=== PATIENT | female | born 1935 | race Caucasian/White ===

== ENCOUNTER 2017-03-09 06:45 | Inpatient (IN) | payer OTHER ==
[~2017-03-09] VITALS: Ht 154.9 cm; Wt 45.1 kg
--- NOTE | 2017-03-09 10:51 | DIAGNOSTIC IMAGING REPORT ---
PROCEDURE: ABDOMEN/PELVIS WITH CONTRAST CLINICAL INDICATION: ABDOMINAL PAIN TECHNIQUE: 100 ml of Isovue 300 were injected intravenously and axial images were obtained of the abdomen and pelvis with sagittal and coronal reformations. COMPARISON: None. FINDINGS: ABDOMEN: Distended, fluid-filled stomach with an air-fluid level. Proximal bowel loops are dilated and fluid-filled, measuring up to 3.3 cm in diameter. There is mild mesenteric congestion adjacent pelvic small bowel loops and in the right lower quadrant of the abdomen. A trace amount of fluid is seen lateral in the right lower quadrant. There is a small bowel anastomoses in the right lower quadrant and a very distended small bowel loop with signs of stasis, probably just proximal to the transition point. Distally, ileal loops are completely decompressed. Mildly increased amount of solid stool is seen throughout the colon. There are surgical changes of cystectomy, ileal conduit, and right abdominal ureterostomy. There is a small fatty peristomal hernia. The hernia sac measures approximately 3.5 cm in diameter. There is fluid in the urostomy bag. Clear lung bases. Normal liver, gallbladder, adrenal glands, spleen, pancreas, and inferior vena cava. Mild prominence of the intrarenal collecting systems bilaterally. Multiple tiny scattered corticomedullary hypodensities through each kidney. PELVIS: A fairly long segment of sigmoid colon demonstrates complete decompression. Elsewhere there is solid stool in the distal colon and rectum. Urinary bladder surgically absent. There is 1.6 x 1.3 cm low density mass along the left pelvic sidewall adjacent to the external iliac vessels. (Series 3 image 56). The uterus is surgically absent. No free pelvic fluid. Tiny sclerotic focus in the anterior left ilium just above the acetabulum. Ankylosis of the L5-S1 vertebral bodies. Unilateral right pars defect at L4 resulting in grade 1 L4 and L5 anterolisthesis and moderate disc degeneration. IMPRESSION: 1. Findings suggestive of high-grade partial or complete small bowel obstruction with transition point near the prior small bowel anastomosis in the right lower quadrant. 2. Cystectomy and urinary diversion procedure with right abdominal urostomy. 3. 1.6 cm left pelvic sidewall low-density mass of uncertain etiology. 4. Tiny sclerotic focus in the left ilium, probably a benign bone island but no prior comparison studies are available. 5. Status post hysterectomy. 6. Discussed with Dr. Shaw in the emergency room. All CT scans at this facility use dose modulation, iterative reconstruction, and/or weight-based dosing when appropriate to reduce radiation dose to as low as reasonably achievable.
--- NOTE | 2017-03-09 10:58 | ED CLINICAL REPORT ---
Clinical Report - Physicians/Mid Levels [facility] [address] [place] [address] 03/09/2017 6:56 Patient: MELECIO LIVINGSTON Time Seen: 07:01; initial patient contact. Arrived- By ambulance. Historian- patient. HISTORY OF PRESENT ILLNESS Chief Complaint: ABDOMINAL PAIN. At its maximum, severity described as mild. When seen in the E.D., severity described as mild. Modifying factors. Not worsened by anything. Not relieved by anything. It is described as sharp. No radiation. It is described as located in the periumbilical area. The patient has had nausea and loss of appetite. No vomiting or diarrhea. Similar symptoms previously: None. Recent medical care: Not recently seen/assessed. REVIEW OF SYSTEMS No constipation, black stools, hematemesis, difficulty with urination or pain with urination. No urinary frequency, bloody stools, fever or chills. Last bowel movement: recently. All systems otherwise negative, except as recorded above. PAST HISTORY GERD Breast Ca Bladder Ca. Surgeries: Had hysterectomy. Medications: Benzonatate Oral (Capsule 100 mg) 2 capsules, daily. Zaleplon Oral (Capsule 5 mg) 1/2 tab. Omeprazole Oral (Tablet Delayed Release 20 mg) 1 tablet, daily. AmLODIPine Besylate Oral (Tablet 10 mg) 1 tablet, daily. Multivitamins Oral. AmLODIPine Besylate Oral. Levothyroxine Sodium Oral (Tablet 125 mcg) 1 tablet, daily. Citalopram Hydrobromide Oral (Tablet 20 mg) 1 tablet. Levothyroxine Sodium Oral. Citalopram Hydrobromide Oral. Lovastatin Oral (Tablet 40 mg) 1 tablet, daily. Lovastatin Oral. Potassium Chloride Oral 10 meq, daily. Allergies: No Known Drug Allergy. SOCIAL HISTORY Never smoker. No alcohol use or drug use. ADDITIONAL NOTES The nursing notes have been reviewed. PHYSICAL EXAM Vital Signs: 03/09/2017 06:55 BP: 135/54. HR: 69. RR: 18. O2 saturation: 99%. Temp: 98.2 F. Pain level now: 5/10. Have been reviewed. Hypotensive. Heart rate normal. Respiratory rate normal. Temperature normal. Oxygen saturation normal. Appearance: Alert. Oriented X3. No acute distress. Eyes: Pupils equal, round and reactive to light. Eyes normal inspection. ENT: Nose normal. Dry mucous membranes present. Neck: Normal inspection. Neck supple. CVS: Normal heart rate and rhythm. Heart sounds normal. Respiratory: No respiratory distress. Breath sounds normal. Abdomen: Soft. Mild tenderness in the periumbilical area. No guarding or rebound tenderness. Bowel sounds normal. No organomegaly. No mass. Back: Normal inspection. No CVA tenderness. Skin: Skin warm and dry. Normal skin color. No rash. Extremities: No lower extremity edema. No lower extremity edema. Neuro: Oriented X 3. No motor deficit. No sensory deficit. LABS, X-RAYS, AND EKG Abdominal CT: Normal aorta. Normal liver, spleen, pancreas, gallbladder and adrenals. No mass. No free fluid. No bony lesion. No diverticulitis. Patient has a small bowel obstruction with a transition point in the right lower quadrant. Study type: abdomen and pelvis. Abdominal CT performed with IV contrast. The study was independently viewed by me, interpreted by the radiologist and contemporaneously by me and discussed with the radiologist. Prior studies were not available for comparison. Laboratory Tests: UA-Culture if indicated: (TARAN: 03/09/2017 07:45) ( MsgRcvd 03/09/2017 08:35) Final results Test Result Flag Units (Reference) URINE COLOR YELLOW URINE APPEARANCE CLEAR URINE GLUCOSE NEGATIVE (NEGATIVE) URINE BILIRUBIN NEGATIVE (NEGATIVE) URINE KETONE NEGATIVE (NEGATIVE) URINE SPECIFIC GRAVITY 1.010 (1.010-1.030) URINE PH 7.0 (5.0-8.0) URINE PROTEIN NEGATIVE (NEGATIVE) URINE UROBILINOGEN 0.2 EU/dL (0.2-1.0) URINE NITRITE NEGATIVE (NEGATIVE) URINE BLOOD NEGATIVE (NEGATIVE) URINE LEUK ESTERASE NEGATIVE (NEGATIVE) URINE RBC 0-1 rbc/hpf (0-1) URINE WBC 0-1 wbc/hpf (0-1) URINE EPITHELIAL CELLS 0-1 EPI/hpf (0-5) URINE BACTERIA NONE SEEN (NONE SEEN) URINE COMMENT CULT NOT INDICATED URINE CULTURES ARE SET-UP BASED ON THE FOLLOWING CRITERIA:POSITIVE NITRITEPOSITIVE LEUKOCYTE ESTERASEGREATER THAN 10 WHITE BLOOD CELLSMODERATE (2+) OR GREATER BACTERIA CBC w Diff: (TARAN: 03/09/2017 07:30) ( NegRcvd 03/09/2017 07:44) Final results Test Result Flag Units (Reference) WHITE BLOOD COUNT 17.2 H K/uL (4.5-11.5) RED BLOOD COUNT 4.85 M/uL (4.00-5.20) HEMOGLOBIN 14.5 gm/dL (12.0-16.0) HEMATOCRIT 43.7 % (36.0-46.0) MEAN CELL VOLUME 90 fL (80-100) MEAN CORPUSCULAR HGB 30 pg (26-34) MEAN CORPUSCULAR HGB CONC 33 g/dL (31-37) RED CELL DISTRIBUTION WIDTH 13.7 % (11.6-14.8) PLATELET COUNT 406 H K/uL (150-400) NEUTROPHIL % 90.8 H % (50-75) LYMPH % 4.8 L % (25-40) MONO % 4.0 % (3-14) EOSINOPHIL % 0.1 % (0-4) BASOPHIL % 0.3 % (0-2) CMP: (TARAN: 03/09/2017 07:30) ( MsgRcvd 03/09/2017 07:53) Final results Test Result Flag Units (Reference) GLUCOSE 159 H mg/dL (70-110) BUN 15 mg/dL (7-18) CREATININE 1.1 mg/dL (0.6-1.3) Estimated GFR 50.54 mL/min Estimated GFR- >60 mL/min Note: Persistent reduction over 3 months in eGFR<60 mL/min/1.73 m2 defines CKD. Patients with eGFR values>=60 mL/min/1.73 m2 may also have CKD if evidence ofpersistent proteinuria. Additional information may be foundat [email or web address].org. SODIUM 140 mmol/L (136-145) POTASSIUM 3.5 mmol/L (3.5-5.1) CHLORIDE 99 mmol/L (98-107) CARBON DIOXIDE 31 mmol/L (21-32) CALCIUM 10.8 H mg/dL (8.5-10.1) TOTAL PROTEIN 7.9 g/dL (6.4-8.2) ALBUMIN 3.7 g/dL (3.3-5.0) BILIRUBIN, TOTAL 1.2 H mg/dL (0.0-1.0) ALKALINE PHOSPHATASE 69 U/L (46-116) AST (SGOT) 17 U/L (15-37) ALT (SGPT) 22 U/L (12-78) LIPASE 104 U/L (73-393) AMYLASE 33 U/L (25-115) . Pulse Oximetry: 03/09/2017 06:55 O2 saturation: 99%. (FIO2 - room air). Interpretation: normal. PROGRESS AND PROCEDURES Course of Care: I received the patient in signout from Dr. De La Rosa at 9:00. Patient was pending CT scan of abdomen and pelvis at this time. Laboratory studies were unremarkable other than a leukocytosis. Patient was found have a small bowel obstruction on her CT scan, for which an NG tube was placed. Patient was found to be feelingquite a bit more comfortable after her initial 2 mg of morphine, but did ultimately require another dose of morphine in the emergency department. Discussed case with hospitalist, (Desiree). Reviewed test results and need for additional work-up. Agreed upon treatment plan and decision to admit. Health care provider will see patient in ED. Discussed case with on-call health care provider, (Jamey/ surgery). Reviewed test results. Agreed upon treatment plan. Health care provider will see patient in ED. Patient, spouse and family counseled in person regarding the patient's serious condition, test results, diagnosis and need for admission. Concerns were addressed. Old medical records reviewed. Disposition: Admitted to Acute Care. Condition: stable and serious. CLINICAL IMPRESSION Small bowel obstruction associated with intestinal bands / adhesions (partial versus complete). (Electronically signed by Amita Shaw MD 03/09/2017 20:59)
--- NOTE | 2017-03-09 10:58 | ED ORDER SUMMARY ---
..... Patient: MELECIO LIVINGSTON OrderSheet [facility] VisitID: [id number] [place] [address] 81y, F Registration Date/Time: 03/09/2017 ORDER SHEET Weight: 47.6 kg (stated) Allergies: No Known Drug Allergy GENERAL ORDERS: CBC w Diff Urgent (07:03 03/09/2017 Reba Strickland) (Ack 7:11 Priya) (7:35 SStone R.N.) CMP Urgent (07:03 03/09/2017 Reba Strickland) (Ack 7:11 Priya) (7:35 SStone R.N.) UA-Culture if indicated Urgent (07:03/09/2017 Reba Strickland) (Ack 7:11 Priya) (7:35 SStone R.N.) Amylase Urgent (07:03/09/2017 Reba Strickland) (Ack 7:11 Priya) (7:35 SStone R.N.) Lipase Urgent (07:03 03/09/2017 Reba Strickland) (Ack 7:11 Priya) (7:35 SStone R.N.) CT Abd/Pel w Cont (No) (15/.1) Urgent (08:52 03/09/2017 Reba Strickland) (Ack 8:53 Priya) (9:21 SStone R.N.) NG Tube (10:30 03/09/2017 Cruzito REINOSO) (Ack 10:52 LWhalen R.N.) (11:16 SStone R.N.) MEDICATION ORDERS: IV FLUIDS: IV NS : initial bolus none -, then 1000 mL/hr for X1 (NOW) (07:02 03/09/2017 Reba Strickland) (Ack 7:08 Kenia R.N.) (7:35 SStone R.N.) Zofran IV 4 mg (NOW) (07:02 03/09/2017 Reba Strickland) (Ack 7:08 Kenia R.N.) (7:35 SStone R.N.) Morphine IV 2 mg (HIGH ALERT MEDICATION, NOW) (07:37 03/09/2017 SStone R.N. verbal order read back to Reba Strickland) (7:38 SStone R.N.) Morphine IV 2 mg (HIGH ALERT MEDICATION, NOW) (11:14 03/09/2017 SStone R.N. verbal order read back to Cruzito REINOSO) (11:16 SStone R.N.) IV NS : initial bolus none -, then 100 mL/hr for 24h (NOW) (11:15 03/09/2017 SStone R.N. verbal order read back to Cruzito REINOSO) (11:16 SStone R.N.) ORDER SHEET NOTES: [Electronically signed by Fabian Kelly R.N. (14:07 03/09/2017)] [Electronically signed by Amita Shaw MD (20:59 03/09/2017)] [Electronically locked/signed by Fabian Kelly R.N. (14:07 03/09/2017)]
--- NOTE | 2017-03-09 10:58 | ED ORDER SUMMARY ---
..... Patient: MELECIO LIVINGSTON OrderSheet [facility] VisitID: [id number] [place] [address] 81y, F Registration Date/Time: 03/09/2017 ORDER SHEET Weight: 47.6 kg (stated) Allergies: No Known Drug Allergy GENERAL ORDERS: CBC w Diff Urgent (07:03 03/09/2017 Reba Strickland) (Ack 7:11 Priya) (7:35 SStone R.N.) CMP Urgent (07:03 03/09/2017 Reba Strickland) (Ack 7:11 Priya) (7:35 SStone R.N.) UA-Culture if indicated Urgent (07:03/09/2017 Reba Strickland) (Ack 7:11 Priya) (7:35 SStone R.N.) Amylase Urgent (07:03/09/2017 Reba Strickland) (Ack 7:11 Priya) (7:35 SStone R.N.) Lipase Urgent (07:03 03/09/2017 Reba Strickland) (Ack 7:11 Priya) (7:35 SStone R.N.) CT Abd/Pel w Cont (No) (15/.1) Urgent (08:52 03/09/2017 Reba Strickland) (Ack 8:53 Priya) (9:21 SStone R.N.) NG Tube (10:30 03/09/2017 Cruzito REINOSO) (Ack 10:52 LWhalen R.N.) (11:16 SStone R.N.) MEDICATION ORDERS: IV FLUIDS: IV NS : initial bolus none -, then 1000 mL/hr for X1 (NOW) (07:02 03/09/2017 Reba Strickland) (Ack 7:08 Kenia R.N.) (7:35 SStone R.N.) Zofran IV 4 mg (NOW) (07:02 03/09/2017 Reba Strickland) (Ack 7:08 Kenia R.N.) (7:35 SStone R.N.) Morphine IV 2 mg (HIGH ALERT MEDICATION, NOW) (07:37 03/09/2017 SStone R.N. verbal order read back to Reba Strickland) (7:38 SStone R.N.) Morphine IV 2 mg (HIGH ALERT MEDICATION, NOW) (11:14 03/09/2017 SStone R.N. verbal order read back to Cruzito REINOSO) (11:16 SStone R.N.) IV NS : initial bolus none -, then 100 mL/hr for 24h (NOW) (11:15 03/09/2017 SStone R.N. verbal order read back to Cruzito REINOSO) (11:16 SStone R.N.) ORDER SHEET NOTES: [Electronically signed by Fabian Kelly R.N. (14:07 03/09/2017)] [Electronically signed by Amita Shaw MD (20:59 03/09/2017)] [Electronically locked/signed by Fabian Kelly R.N. (14:07 03/09/2017)]
--- NOTE | 2017-03-09 10:58 | ED NURSING NOTES ---
Clinical Report - Nurses [facility] [address] [place] [address] 03/09/2017 6:56 Patient: MELECIO LIVINGSTON TRIAGE Triage time 06:47 Mar 09 2017. Acuity: LEVEL 3. Chief Complaint: ABDOMINAL PAIN and NAUSEA. 07:05 03/09/17. SEPSIS SCREEN: Sepsis Screen. Negative (no infection suspected/documented). FREIDA COMA SCORE: [place] Coma Scale: 15- eyes open spontaneously (4); best verbal response- oriented x 4 (5); best motor response- obeys commands (6). --07:05 Mag Correa R.N. 06:55 03/09/17. BP: 135/54 (regular adult cuff) taken on the left arm, while sitting. HR: 69. RR: 18. O2 saturation: 99% on room air. Temp: 98.2 F (oral). Pain level now: 5/10. --07:05 Mag Correa R.N. Weight: 47.6 kg stated. Height/Length: 61 inches Per Patient. BMI: 19.8. --07:02 Mag Correa R.N. Medications Lovastatin Oral. Potassium Chloride Oral 10 meq, daily. --06:58 Mag Correa R.N. Citalopram Hydrobromide Oral. Lovastatin Oral (Tablet 40 mg) 1 tablet, daily. --06:58 Mag Correa R.N. Citalopram Hydrobromide Oral (Tablet 20 mg) 1 tablet. Levothyroxine Sodium Oral. --06:59 Mag Correa R.N. AmLODIPine Besylate Oral. Levothyroxine Sodium Oral (Tablet 125 mcg) 1 tablet, daily. --06:59 Mag Correa R.N. AmLODIPine Besylate Oral (Tablet 10 mg) 1 tablet, daily. Multivitamins Oral. --06:59 Mag Correa R.N. Omeprazole Oral (Tablet Delayed Release 20 mg) 1 tablet, daily. --07:00 Mag Correa R.N. Zaleplon Oral (Capsule 5 mg) 1/2 tab. --07:00 Mag Correa R.N. Benzonatate Oral (Capsule 100 mg) 2 capsules, daily. --07:02 Mag Correa R.N. Allergies No Known Drug Allergy. --06:57 Mag Correa R.N. History Historian: EMS and patient. Primary physician (Dr Jerome). This started last night. ( Patient was diagnosed with bronchitis last Monday and started a new medication Benzonate). The patient has had nausea and moderate, constant abdominal pain. The pain is described as located in the upper abdomen. Treatment [employer]: (Antacid, pepto). PAST MEDICAL HX: Gastroesophageal reflux disease. The patient has had a hysterectomy. SOCIAL HX: Never smoker. No alcohol use or drug use. No recent travel. No infectious disease exposure. No known contact with a sick individual. ABUSE ASSESSMENT: No report of abuse. --07:05 Mag Correa R.N. Interventions ID band on patient. To treatment room. --07:05 Mag Correa R.N. PHYSICAL ASSESSMENT 07:07 03/09/17. To room via stretcher. Patient gowned. GENERAL / NEURO / PSYCH: Alert. Oriented X 4. Appears in no acute distress. HEENT: Mucous membranes are abnormal. RESPIRATORY: Respirations not labored. Breath sounds within normal limits. CVS: Normal sinus rhythm noted. Capillary refill less than 2 seconds. GI / : The patient has had nausea. Abdominal tenderness. Guarding present in the epigastric area. Bowel sounds within normal limits. ( Urostomy in place). SKIN: Skin is warm and dry. Poor skin turgor. --07:07 Mag Correa R.N. NURSING PROGRESS NOTES 07:08 03/09/17. The plan of care for this patient has been created. Monitoring of patient in place. Patient gowned. Head of bed elevated. Reassurance given. Two patient identifiers checked. Call light placed in reach. Side rails up x 2. Bed placed in lowest position. Brakes of bed on. Patient ready for evaluation- chart flagged and ED physician notified. --07:08 Mag Correa R.N. Care transferred and report given (VIVIANA Castro). --07:23 Mag Correa R.N. 07:25 03/09/2017 Site #1 started via IV in the left forearm with an 22g angiocath; one attempt. Blood drawn: rainbow set. Labeled in the presence of the patient and sent to the lab. Saline lock flushed with 10 mL saline. --07:35 Mary Ann Delgadillo R.N. 07:30 03/09/2017 Zofran (Ondansetron HCl) IVP 4 mg given over 2 minute(s) via site #1. IV patency established. IV site checked: no pain, redness, or swelling. IV flushed thoroughly pre- and post-medication administration. --07:35 Mary Ann Delgadillo R.N. 07:35 03/09/2017 Started IV Fluids IV NS (Saline); bolus of 1000 mL wide open via site #1. IV patency established. IV site checked: no pain, redness, or swelling. IV flushed thoroughly pre- and post-medication administration. --07:35 Mary Ann Delgadillo R.N. 07:38 03/09/2017 Morphine IVP 2 mg given over 2 minute(s) via site #1. IV patency established. IV site checked: no pain, redness, or swelling. IV flushed thoroughly pre- and post-medication administration. --07:38 Mary Ann Delgadillo R.N. 07:45 03/09/17. BP: 129/51. HR: 70. RR: 16. O2 saturation: 100%. Pain level now: 810. --07:46 Mary Ann Delgadillo R.N. ( family at bedside. urine collected from urostomy and sent to lab. Pt reports starting to feel more comfortable after pain medication.). --07:46 Mary Ann Delgadillo R.N. 08:30 03/09/17. BP: 112/40. HR: 78. O2 saturation: 98%. Pain level now: 0/10. --08:32 Mary Ann Delgadillo R.N. ( pt. reports feeling much better post pain meds.). --08:32 Mary Ann Delgadillo R.N. 09:04 03/09/17. BP: 99/46. HR: 73. O2 saturation: 96%. --09:04 Mary Ann Delgadillo R.N. ( Out to imaging with tech). --09:15 Mary Ann Delgadillo R.N. ( back from ct). --09:29 Mary Ann Delgadillo R.N. ( resting quietly. family at bedside. awaiting CT results.). --10:01 Mary Ann Delgadillo R.N. 10:00 03/09/17. BP: 115/74. HR: 71. O2 saturation: 96%. Pain level now: 10/28. --10:01 Mary Ann Delgadillo R.N. 10:55 03/09/17. BP: 127/48. O2 saturation: 96%. --11:14 Mary Ann Delgadillo R.N. 11:16 03/09/2017 Morphine IVP 2 mg given over 2 minute(s) via site #1. IV patency established. IV site checked: no pain, redness, or swelling. IV flushed thoroughly pre- and post-medication administration. --11:16 Mary Ann Delgadillo R.N. 11:16 03/09/2017 Started bag #1 1000 mL IV Fluids IV NS (Saline); at 100 mL/hr over 10 hour(s) via site #1. IV patency established. IV site checked: no pain, redness, or swelling. IV flushed thoroughly pre- and post-medication administration. --11:16 Mary Ann Delgadillo R.N. 16 fr NG tube inserted in right nostril with no difficulty. Placement confirmed by auscultation and return of gastric contents. Return: brown fluid. Tube secured. Attached to low and intermittent suction. Patient tolerated procedure well. Call light placed in reach. Side rails up x 2. Bed placed in lowest position. --11:17 Mary Ann Delgadillo R.N. Overall patient status is improved. --11:32 Mary Ann Delgadillo R.N. ( assumed care of pt, pt in poc, NG to low/int suction, previous RN dumped 1000ml of gastric contents, pt pain free, multiple family members at bedside, pt and family aware she is to be an admit to hospital.). --11:38 Fabian Kelly R.N. ( Dr Concepcion at bedside). --11:39 Fabian Kelly R.N. Patient waiting for admit bed. ( EDT assisted pt in emptying her colostomy bag, waiting ok for pt to transport to inpatient floor). --12:17 Fabian Kelly R.N. ( Hospitalist at bedside). --12:29 Fabian Kelly R.N. ( portable xray at bedside). --12:46 Fabian Kelly R.N. Patient identifiers checked. Call light placed in reach. Side rails up x 2. Bed placed in lowest position. Brakes of bed on. --12:49 Fabian Kelly R.N. 12:48 03/09/17. BP: 121/58. HR: 72. RR: 15. O2 saturation: 99%. Pain level now: 09/27. --12:49 Fabian Kelly R.N. ( continue to wait for ok to send pt upstairs for inpatient bed). --13:22 Fabian Kelly R.N. Intake & Output Gastric output: 1200 mL. --11:32 Mary Ann Delgadillo R.N. DISPOSITION / DISCHARGE Condition at departure: improved. Admitted to Acute Care (). Transported via stretcher by [facility]. Report was given to a nurse via a phone call. Report included patient's care, treatment, medications, reviewed medication reconcilliation, and condition (including any recent changes or anticipated changes). All questions were answered. Report was acknowledged and care was transferred. (Judie MICHELLE). --13:29 Fabian Kelly R.N. 13:27 03/09/17. BP: 122/52. HR: 74. RR: 17. O2 saturation: 100%. Pain level now: 09/27. --13:29 Fabian Kelly R.N. Locked/Released at 03/09/2017 14:07 by Fabian Kelly R.N.
--- NOTE | 2017-03-09 12:22 | Consultation Report ---
History Chief Complaint Abdominal pain History of Present Illness 81-year-old female with a history of severe colicky epigastric abdominal pain which began approximately 48 hours ago. During the last 24 hours it worsened. Localized epigastric region. Nonradiating. Crampy, colicky in nature. Associated with nausea or vomiting. Patient denies any fever or chills. Patient states that her last bowel movement was the day prior to admission. Patient has not passed any flatus for at least 48 hours. Patient states that she has no prior history of this type abdominal pain. PAST MEDICAL/HISTORY: Patient is followed by Dr. Fu, [facility]. Status post cystectomy with ileal conduit for bladder cancer, performed 4 years ago. Status post right breast lumpectomy and axillary dissection for breast cancer. Status post tonsillectomy and adenoidectomy. Status post hysterectomy and bilateral salpingo-oophorectomy. History of hypertension. History of hypercholesterolemia. History of hypothyroidism Patient History 1. PARTIAL VERSUS COMPLETE SMALL BOWEL OBSTRUCTION 2. Abdominal pain Social History with 2 daughters alive and well. Patient does not smoke. Patient no longer drinks alcohol. She does not use recreational drugs. Retired dispatcher for [employer] FAMILY HISTORY: Mother age 97, complications of colon cancer. Father in his 60s, cancer, unknown etiology. A half sister in good health Medications and Allergies Medications See nurses listing Allergies Uncoded Allergies: none (03/09/17) Review of Systems Other Ab0. Menarche age 14. First full term 23. Last menstrual period" 61". Last Pap smear approximately 20 years ago. Last mammogram approximately one year ago. Last colonoscopy approximately 10 years ago. Next denies any history of hepatitis, jaundice, rheumatic fever, heart murmurs, requiring antibiotics, bleeding tendencies. Patient admits to having a blood transfusion in the past. Patient 12 point review of systems is negative Physical Exam Vital Signs / I&Os Afebrile, stable vital signs emergency room General Appearance Alert, Oriented X3, Cooperative, No acute distress HEENT Atraumatic, PERRLA, EOMI, Moist mucous membranes, NG tube in place Lungs Clear to auscultation Neck Supple, No JVD, No masses, No thyromegaly, No lymphadenopathy, 2+ carotid pulse wo bruit Cardiovascular Regular rate and rhythm Abdomen ileal conduit functioning. Abdomen nondistended. Nontympanitic. Positive bowel sounds. Slight tenderness to palpation suprapubic region. Theinfra umbilical midline incision without hernia Extremities No clubbing, No edema, Normal pulses Skin warm and dry Neurological Normal speech, No lateralizing signs Psych/Mental Status Mental status normal LAB Results Laboratory Tests 03/09 03/09 0730 0745 Chemistry Plasma Sodium (136 - 145 mmol/L) 140 Plasma Potassium (3.5 - 5.1 mmol/L) 3.5 Plasma Chloride (98 - 107 mmol/L) 99 CO2 (Enzymatic) (21 - 32 mmol/L) 31 BUN (7 - 18 mg/dL) 15 Creatinine (0.6 - 1.3 mg/dL) 1.1 Est GFR ( Amer) (mL/min) >60 Est GFR (Non-Af Amer) (mL/min) 50.54 Glucose (70 - 110 mg/dL) 159 Plasma Calcium (8.5 - 10.1 mg/dL) 10.8 Total Bilirubin (0.0 - 1.0 mg/dL) 1.2 AST (15 - 37 U/L) 17 ALT (12 - 78 U/L) 22 Alkaline Phosphatase (46 - 116 U/L) 69 Total Protein (6.4 - 8.2 g/dL) 7.9 Albumin (3.3 - 5.0 g/dL) 3.7 Amylase (25 - 115 U/L) 33 Lipase (73 - 393 U/L) 104 Hematology WBC (4.5 - 11.5 K/uL) 17.2 RBC (4.00 - 5.20 M/uL) 4.85 Hgb (12.0 - 16.0 gm/dL) 14.5 Hct (36.0 - 46.0 %) 43.7 MCV (80 - 100 fL) 90 MCH (26 - 34 pg) 30 RDW (11.6 - 14.8 %) 13.7 Neut % (Auto) (50 - 75 %) 90.8 Lymph % (Auto) (25 - 40 %) 4.8 [place] % (Auto) (3 - 14 %) 4.0 Eos % (Auto) (0 - 4 %) 0.1 Baso % (Auto) (0 - 2 %) 0.3 Plt Count, EDTA (150 - 400 K/uL) 406 PUBS MCHC (31 - 37 g/dL) 33 Urines Urine Color YELLOW Urine Appearance CLEAR Urine pH (5.0 - 8.0) 7.0 Ur Specific [place] (1.010 - 1.030) 1.010 Urine Protein (NEGATIVE) NEGATIVE Urine Ketones (NEGATIVE) NEGATIVE Urine Blood (NEGATIVE) NEGATIVE Urine Nitrite (NEGATIVE) NEGATIVE Urine Bilirubin (NEGATIVE) NEGATIVE Urine Urobilinogen (0.2 - 1.0 EU/dL) 0.2 Ur Leukocyte Esterase (NEGATIVE) NEGATIVE Urine RBC (0 - 1 rbc/hpf) 0-1 Urine WBC (0 - 1 wbc/hpf) 0-1 Ur Epithelial Cells (0 - 5 EPI/hpf) 0-1 Urine Bacteria (NONE SEEN) NONE SEEN Urine Glucose (NEGATIVE) NEGATIVE Urine Comment CULT NOT INDICATED Imaging CT of abdomen reviewed , consistent with partial versus complete small bowel obstruction with transition point right lower quadrant. Assessment and Plan Problem List 1. PARTIAL VERSUS COMPLETE SMALL BOWEL OBSTRUCTION Plan 81-year-old female with history that would go along with someone partial versus complete small bowel instruction. Recommend NG suction and perhaps advancing NG tube into duodenum. Repeat upright abdominal x-ray in a.m. once bowel was decompressed recommend Gastrografin small bowel follow-through via NG tube. Judicious use of intravenous analgesics , however, avoid morphine and Dilaudid. Judicious use of nonsteroidal anti-inflammatory medication. Stress important of ambulation.
--- NOTE | 2017-03-09 13:03 | DIAGNOSTIC IMAGING REPORT ---
PROCEDURE: XR ABDOMEN 1 VIEW INDICATION: NG tube placement TECHNIQUE: Single view supine abdomen. COMPARISON: CT 03/09/2017 FINDINGS: Nasogastric tube has been placed. The tip is in the mid stomach directed right lateral. Air within the proximal stomach (decompressed). Paucity of gas elsewhere in the abdomen and pelvis. Renal excretion of IV contrast, right greater than left and right mid abdominal urostomy visible. The surgical clips along each pelvic sidewall of prior cystectomy. Intact osseous structures. IMPRESSION: 1. NG tube tip in mid to distal stomach. 2. Paucity of gas elsewhere suggests decompression versus fluid-filled bowel loops compatible with obstruction. 3. Right abdominal urostomy.
--- NOTE | 2017-03-09 13:26 | Progress Note ---
Subjective General Admission History and Physical Examination Status: In patient. Patient Name: Blanquita Nowak Admission Date; `7 Primary Care Provider: Dr. Hodge; [facility] smoking point Attending Physician: Cheko Ramírez MD. Admitting Physician: Cheko Ramírez MD Code Status: full code Room: SUBJECTIVE Historian: patient Reliability: good Chief Complaint: abdominal pain History of Present Illness: The patient is an 81-year-old female with history of hyperlipidemia, hypertension, hypothyroid, bladder cancer status post cystectomy with ilial conduit who is presenting with severe colicky epigastric abdominal pain which began approximately 48 hours prior to her arrival arrival at [facility] ED. She reported a worsening over the previous 24 hours. Patient reported of localized pain in the epigastric without radiation. CT scan revealed partial obstruction to complete obstruction of the small bowel. Patient was seen by general surgery who recommended patient be admitted with an SPO, NG-tube placement, bowel rest and observation. She primarily had complaints of mid abdominal pain. Patient had complaints of nausea, but no vomiting . No complaints of hematochezia or melena. Patient is admitted under hospitalist services as consistent findings as found in the [facility] ED for small bowel obstruction. Patient will be admitted under Dr. Cheko Ramírez M.D. Consulting physician is Dr. Concepcion. PAST MEDICAL HISTORY Illnesses: 1. Bladder cancer 2. Hypothyroid 3. Hypercholesterolemia 4. Hypertension 5. GERD 6. Bladder cancer Allergies: 1. No reported drug allergies Medications: Benzonatate Oral (Capsule 100 mg) 2 capsules, daily. Zaleplon Oral (Capsule 5 mg) 1/2 tab. Omeprazole Oral (Tablet Delayed Release 20 mg) 1 tablet, daily. AmLODIPine Besylate Oral (Tablet 10 mg) 1 tablet, daily. Multivitamins Oral. AmLODIPine Besylate Oral. Levothyroxine Sodium Oral (Tablet 125 mcg) 1 tablet, daily. Citalopram Hydrobromide Oral (Tablet 20 mg) 1 tablet. Lovastatin Oral (Tablet 40 mg) 1 tablet, daily. Potassium Chloride Oral 10 meq, daily. Surgery: 1. Cystectomy with ilial conduit for bladder cancer 4 years ago 2. Right breast lumpectomy dissection of the right breast 3. Hysterectomy with bilateral salpingo-oophorectomy Injuries: 1. None reported Hospitalizations: 1. for the above noted issues above. FAMILY HISTORY Mother age 97, complications of colon cancer. Father in his 60s, cancer, unknown etiology. A half sister in good health SOCIAL HISTORY 1. Marital Status: for 20 years 2. [place]: Not known 4. 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 Occupational health exposures: occupation HABITS 1. Tobacco: No history of smoking 2. Drugs: 3. Alcohol: none HEALTH SUPERVISION Item/Test Up-to-date see previous records from [facility] IMMUNIZATIONS: 1. Pneumococcal: Up-to-date as scheduled 2. Influenza:up ot date as scheduled 3. Tetanus:up ot date as scheduled ADVANCED DIRECTIVES: 1. Living well: Available 2. POLST: none 3. Code Status: Full code with limitations 4. Durable Power Obstetric Anaesthetist Health care: Tim REVIEW OF SYSTEMS Remarkable for those things stated in the history of present illness and past medical history. ROS Constitutional Denies: Chills, Sweats, Weakness. Eyes Denies: Vision Change. ENT Denies: Nose Pain, Mouth Pain. Respiratory Denies: Wheezing. Cardiovascular Denies: Palpitations. Gastrointestinal Nausea, Vomiting, Abdominal Pain, Other (no flatulence or stool in 48 h). Physical Exam Vital Signs / I&Os Afebrile, stable vital signs emergency room 135/54. HR: 69. RR: 18. O2 saturation: 99%. Temp: 98.2 F. General Appearance Alert, Oriented X3, Cooperative HEENT EOMI Lungs Clear to auscultation Cardiovascular Regular rate and rhythm, systolic murmur, normal S1 and S2 Abdomen No hepatosplenomegaly, tendereness., decreased bowel sounds, no rebound, abdomen nondistended tenderness to palpation in suprapubic region. Decreased bowel sounds present ileal conduit dysfunction Extremities No cyanosis, No clubbing Neurological Normal gait, Normal speech Psych/Mental Status Mood normal LAB Results Laboratory Tests 03/09 03/09 0730 0745 Chemistry Plasma Sodium (136 - 145 mmol/L) 140 Plasma Potassium (3.5 - 5.1 mmol/L) 3.5 Plasma Chloride (98 - 107 mmol/L) 99 CO2 (Enzymatic) (21 - 32 mmol/L) 31 BUN (7 - 18 mg/dL) 15 Creatinine (0.6 - 1.3 mg/dL) 1.1 Est GFR ( Amer) (mL/min) >60 Est GFR (Non-Af Amer) (mL/min) 50.54 Glucose (70 - 110 mg/dL) 159 Plasma Calcium (8.5 - 10.1 mg/dL) 10.8 Total Bilirubin (0.0 - 1.0 mg/dL) 1.2 AST (15 - 37 U/L) 17 ALT (12 - 78 U/L) 22 Alkaline Phosphatase (46 - 116 U/L) 69 Total Protein (6.4 - 8.2 g/dL) 7.9 Albumin (3.3 - 5.0 g/dL) 3.7 Amylase (25 - 115 U/L) 33 Lipase (73 - 393 U/L) 104 Hematology WBC (4.5 - 11.5 K/uL) 17.2 RBC (4.00 - 5.20 M/uL) 4.85 Hgb (12.0 - 16.0 gm/dL) 14.5 Hct (36.0 - 46.0 %) 43.7 MCV (80 - 100 fL) 90 MCH (26 - 34 pg) 30 RDW (11.6 - 14.8 %) 13.7 Neut % (Auto) (50 - 75 %) 90.8 Lymph % (Auto) (25 - 40 %) 4.8 [place] % (Auto) (3 - 14 %) 4.0 Eos % (Auto) (0 - 4 %) 0.1 Baso % (Auto) (0 - 2 %) 0.3 Plt Count, EDTA (150 - 400 K/uL) 406 PUBS MCHC (31 - 37 g/dL) 33 Urines Urine Color YELLOW Urine Appearance CLEAR Urine pH (5.0 - 8.0) 7.0 Ur Specific [place] (1.010 - 1.030) 1.010 Urine Protein (NEGATIVE) NEGATIVE Urine Ketones (NEGATIVE) NEGATIVE Urine Blood (NEGATIVE) NEGATIVE Urine Nitrite (NEGATIVE) NEGATIVE Urine Bilirubin (NEGATIVE) NEGATIVE Urine Urobilinogen (0.2 - 1.0 EU/dL) 0.2 Ur Leukocyte Esterase (NEGATIVE) NEGATIVE Urine RBC (0 - 1 rbc/hpf) 0-1 Urine WBC (0 - 1 wbc/hpf) 0-1 Ur Epithelial Cells (0 - 5 EPI/hpf) 0-1 Urine Bacteria (NONE SEEN) NONE SEEN Urine Glucose (NEGATIVE) NEGATIVE Urine Comment CULT NOT INDICATED Imaging CT abdomen and pelvis 1. Findings suggestive of high-grade partial or complete small bowel obstruction with transition point near the prior small bowel anastomosis in the right lower quadrant. 2. Cystectomy and urinary diversion procedure with right abdominal urostomy. 3. 1.6 cm left pelvic sidewall low-density mass of uncertain etiology. 4. Tiny sclerotic focus in the left ilium, probably a benign bone island but no prior comparison studies are available. 5. Status post hysterectomy. Assessment and Plan Problem List 1. Abdominal pain Plan Patient presenting with 48 hours abdominal pain with worsening over the past 24 hours. She was assessed in the [facility] ED. CT showing definitive signs of obstructive bowel changes. Findings significant for loops of bowel. Patient is a history of cholecystectomy. Likely fibrosis and adhesions have interfered with normal bowel function. Patient has been consulted by general surgery. Patient will maintain bowel rest. NG tube in place to suction. Awaiting for return of bowel function including flattest and bowel movement. Maintain adequate hydration. Continue with the anti-inflammatory protocol. Promote activity Toradol 15 mg IM every 6 hours Plain film upright in the a.m. 2. PARTIAL VERSUS COMPLETE SMALL BOWEL OBSTRUCTION Plan SBO seen by surgery. Small bowel obstructive protocol. 3. Hypothyroid Plan Continue with the levothyroxine 125 g daily. 4. Hypertension Plan Continue with the home protocol. No changes. blood pressure during her hospitalization.
--- NOTE | 2017-03-09 13:26 | Progress Note ---
Subjective General Admission History and Physical Examination Status: In patient. Patient Name: Blanquita Nowak Admission Date; `7 Primary Care Provider: Dr. Hodge; [facility] [place] smoking point Attending Physician: Cheko Ramírez MD. Admitting Physician: Cheko Ramírez MD Code Status: full code Room: SUBJECTIVE Historian: patient Reliability: good Chief Complaint: abdominal pain History of Present Illness: The patient is an 81-year-old female with history of hyperlipidemia, hypertension, hypothyroid, bladder cancer status post cystectomy with ilial conduit who is presenting with severe colicky epigastric abdominal pain which began approximately 48 hours prior to her arrival arrival at [facility] ED. She reported a worsening over the previous 24 hours. Patient reported of localized pain in the epigastric without radiation. CT scan revealed partial obstruction to complete obstruction of the small bowel. Patient was seen by general surgery who recommended patient be admitted with an SPO, NG-tube placement, bowel rest and observation. She primarily had complaints of mid abdominal pain. Patient had complaints of nausea, but no vomiting . No complaints of hematochezia or melena. Patient is admitted under hospitalist services as consistent findings as found in the [facility] ED for small bowel obstruction. Patient will be admitted under Dr. Cheko Ramírez M.D. Consulting physician is Dr. Concepcion. PAST MEDICAL HISTORY Illnesses: 1. Bladder cancer 2. Hypothyroid 3. Hypercholesterolemia 4. Hypertension 5. GERD 6. Bladder cancer Allergies: 1. No reported drug allergies Medications: Benzonatate Oral (Capsule 100 mg) 2 capsules, daily. Zaleplon Oral (Capsule 5 mg) 1/2 tab. Omeprazole Oral (Tablet Delayed Release 20 mg) 1 tablet, daily. AmLODIPine Besylate Oral (Tablet 10 mg) 1 tablet, daily. Multivitamins Oral. AmLODIPine Besylate Oral. Levothyroxine Sodium Oral (Tablet 125 mcg) 1 tablet, daily. Citalopram Hydrobromide Oral (Tablet 20 mg) 1 tablet. Lovastatin Oral (Tablet 40 mg) 1 tablet, daily. Potassium Chloride Oral 10 meq, daily. Surgery: 1. Cystectomy with ilial conduit for bladder cancer 4 years ago 2. Right breast lumpectomy dissection of the right breast 3. Hysterectomy with bilateral salpingo-oophorectomy Injuries: 1. None reported Hospitalizations: 1. for the above noted issues above. FAMILY HISTORY Mother age 97, complications of colon cancer. Father in his 60s, cancer, unknown etiology. A half sister in good health SOCIAL HISTORY 1. Marital Status: for 20 years 2. Y[place]: Not known 4. 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 Tobacco: No history of smoking 2. Drugs: 3. Alcohol: none HEALTH SUPERVISION Item/Test Up-to-date see previous records from [facility] [place] IMMUNIZATIONS: 1. Pneumococcal: Up-to-date as scheduled 2. Influenza:up ot date as scheduled 3. Tetanus:up ot date as scheduled ADVANCED DIRECTIVES: 1. Living well: Available 2. POLST: none 3. Code Status: Full code with limitations 4. Durable Power Stringed Instrument Repairer Health care: Tim REVIEW OF SYSTEMS Remarkable for those things stated in the history of present illness and past medical history. ROS Constitutional Denies: Chills, Sweats, Weakness. Eyes Denies: Vision Change. ENT Denies: Nose Pain, Mouth Pain. Respiratory Denies: Wheezing. Cardiovascular Denies: Palpitations. Gastrointestinal Nausea, Vomiting, Abdominal Pain, Other (no flatulence or stool in 48 h). Physical Exam Vital Signs / I&Os Afebrile, stable vital signs emergency room 135/54. HR: 69. RR: 18. O2 saturation: 99%. Temp: 98.2 F. General Appearance Alert, Oriented X3, Cooperative HEENT EOMI Lungs Clear to auscultation Cardiovascular Regular rate and rhythm, systolic murmur, normal S1 and S2 Abdomen No hepatosplenomegaly, tendereness., decreased bowel sounds, no rebound, abdomen nondistended tenderness to palpation in suprapubic region. Decreased bowel sounds present ileal conduit dysfunction Extremities No cyanosis, No clubbing Neurological Normal gait, Normal speech Psych/Mental Status Mood normal LAB Results Laboratory Tests 03/09 03/09 0730 0745 Chemistry Plasma Sodium (136 - 145 mmol/L) 140 Plasma Potassium (3.5 - 5.1 mmol/L) 3.5 Plasma Chloride (98 - 107 mmol/L) 99 CO2 (Enzymatic) (21 - 32 mmol/L) 31 BUN (7 - 18 mg/dL) 15 Creatinine (0.6 - 1.3 mg/dL) 1.1 Est GFR ( Amer) (mL/min) >60 Est GFR (Non-Af Amer) (mL/min) 50.54 Glucose (70 - 110 mg/dL) 159 Plasma Calcium (8.5 - 10.1 mg/dL) 10.8 Total Bilirubin (0.0 - 1.0 mg/dL) 1.2 AST (15 - 37 U/L) 17 ALT (12 - 78 U/L) 22 Alkaline Phosphatase (46 - 116 U/L) 69 Total Protein (6.4 - 8.2 g/dL) 7.9 Albumin (3.3 - 5.0 g/dL) 3.7 Amylase (25 - 115 U/L) 33 Lipase (73 - 393 U/L) 104 Hematology WBC (4.5 - 11.5 K/uL) 17.2 RBC (4.00 - 5.20 M/uL) 4.85 Hgb (12.0 - 16.0 gm/dL) 14.5 Hct (36.0 - 46.0 %) 43.7 MCV (80 - 100 fL) 90 MCH (26 - 34 pg) 30 RDW (11.6 - 14.8 %) 13.7 Neut % (Auto) (50 - 75 %) 90.8 Lymph % (Auto) (25 - 40 %) 4.8 [place] % (Auto) (3 - 14 %) 4.0 Eos % (Auto) (0 - 4 %) 0.1 Baso % (Auto) (0 - 2 %) 0.3 Plt Count, EDTA (150 - 400 K/uL) 406 PUBS MCHC (31 - 37 g/dL) 33 Urines Urine Color YELLOW Urine Appearance CLEAR Urine pH (5.0 - 8.0) 7.0 Ur Specific [place] (1.010 - 1.030) 1.010 Urine Protein (NEGATIVE) NEGATIVE Urine Ketones (NEGATIVE) NEGATIVE Urine Blood (NEGATIVE) NEGATIVE Urine Nitrite (NEGATIVE) NEGATIVE Urine Bilirubin (NEGATIVE) NEGATIVE Urine Urobilinogen (0.2 - 1.0 EU/dL) 0.2 Ur Leukocyte Esterase (NEGATIVE) NEGATIVE Urine RBC (0 - 1 rbc/hpf) 0-1 Urine WBC (0 - 1 wbc/hpf) 0-1 Ur Epithelial Cells (0 - 5 EPI/hpf) 0-1 Urine Bacteria (NONE SEEN) NONE SEEN Urine Glucose (NEGATIVE) NEGATIVE Urine Comment CULT NOT INDICATED Imaging CT abdomen and pelvis 1. Findings suggestive of high-grade partial or complete small bowel obstruction with transition point near the prior small bowel anastomosis in the right lower quadrant. 2. Cystectomy and urinary diversion procedure with right abdominal urostomy. 3. 1.6 cm left pelvic sidewall low-density mass of uncertain etiology. 4. Tiny sclerotic focus in the left ilium, probably a benign bone island but no prior comparison studies are available. 5. Status post hysterectomy. Assessment and Plan Problem List 1. Abdominal pain Plan Patient presenting with 48 hours abdominal pain with worsening over the past 24 hours. She was assessed in the [facility] ED. CT showing definitive signs of obstructive bowel changes. Findings significant for loops of bowel. Patient is a history of cholecystectomy. Likely fibrosis and adhesions have interfered with normal bowel function. Patient has been consulted by general surgery. Patient will maintain bowel rest. NG tube in place to suction. Awaiting for return of bowel function including flattest and bowel movement. Maintain adequate hydration. Continue with the anti-inflammatory protocol. Promote activity Toradol 15 mg IM every 6 hours Plain film upright in the a.m. 2. PARTIAL VERSUS COMPLETE SMALL BOWEL OBSTRUCTION Plan SBO seen by surgery. Small bowel obstructive protocol. 3. Hypothyroid Plan Continue with the levothyroxine 125 g daily. 4. Hypertension Plan Continue with the home protocol. No changes. blood pressure during her hospitalization.
[2017-03-09 14:01] VITALS: BP 130/45
[2017-03-09 18:37] VITALS: BP 129/51
[2017-03-09] MEDS ORDERED: POTASSIMIN75 MG PO (18:48)
[2017-03-09] MEDS ORDERED: ALTOPREV40 MG PO (18:48)
[2017-03-09] MEDS ORDERED: CITALOPRAM HYDR20 MG PO (18:48)
[2017-03-09] MEDS ORDERED: AMLODIPINE BESY (18:50)
[2017-03-09] MEDS ORDERED: MULTIPLE VITAMIN PO (18:51)
[2017-03-09] MEDS ORDERED: HYDRALAZINE HCL10 MG PO (19:36)
[2017-03-09] MEDS ORDERED: [UNRECOGNIZED DRUG - OTHER] PO (19:41)
[2017-03-09] MEDS ORDERED: [UNRECOGNIZED DRUG - OTHER] (19:42)
[2017-03-09] MEDS ORDERED: [UNRECOGNIZED DRUG - OTHER] (19:43)
[2017-03-09] MEDS ORDERED: [UNRECOGNIZED DRUG - OTHER] (19:44)
[2017-03-09] MEDS ORDERED: [UNRECOGNIZED DRUG - OTHER] (19:45)
[2017-03-09] MEDS ORDERED: POTASSIUM CHLORIDE PO (19:47)
--- NOTE | 2017-03-09 20:59 | ED MED RECONCILIATION SUMMARY ---
Patient: MELECIO LIVINGSTON Medication Reconciliation Report [facility] VisitID: [id number] [address] [place] [address] 81y, F Registration Date/Time: 03/09/2017 Weight: 47.6 kg Height/Length: 61 in. BMI: 19.8 ALLERGIES: No Known Drug Allergy The patient's Home Medications are listed below: THE FOLLOWING MEDICATIONS NEED TO BE RECONCILED: AmLODIPine Besylate Oral (10 mg) 1 tablet, daily AmLODIPine Besylate Oral Benzonatate Oral (100 mg) 2 capsules, daily Citalopram Hydrobromide Oral (20 mg) 1 tablet Citalopram Hydrobromide Oral Levothyroxine Sodium Oral (125 mcg) 1 tablet, daily Levothyroxine Sodium Oral Lovastatin Oral (40 mg) 1 tablet, daily Lovastatin Oral Multivitamins Oral Omeprazole Oral (20 mg) 1 tablet, daily Potassium Chloride Oral 10 meq, daily Zaleplon Oral (5 mg) 1/2 tab The source(s) of the original Home Medication information: Not obtained. The following Medications were given to the patient in the Emergency Department: IV NS IV Fluids bolus 1000 mL wide open, administered: 03/09/2017 7:35:00 AM Zofran [IVP] IVP 4 mg, administered: 03/09/2017 7:30:00 AM Morphine [IVP] IVP 2 mg, administered: 03/09/2017 7:38:00 AM Morphine [IVP] IVP 2 mg, administered: 03/09/2017 11:16:00 AM IV NS IV Fluids bolus 0, then 100 mL/hr, administered: 03/09/2017 11:16:00 AM The following Medications were prescribed to the patient: None.
--- NOTE | 2017-03-09 20:59 | ED DISCHARGE INSTRUCTIONS ---
Patient: MELECIO LIVINGSTON General Instructions [facility] VisitID: [id number] [address] [place] [address] 81y, F Registration Date/Time: 03/09/2017 Small bowel obstruction associated with intestinal bands / adhesions (partial versus complete). (Electronically signed by Amita Shaw MD 03/09/2017 20:59)
--- NOTE | 2017-03-09 20:59 | ED DISCHARGE INSTRUCTIONS ---
Patient: MELECIO LIVINGSTON General Instructions [facility] VisitID: [id number] [address] [place] [address] 81y, F Registration Date/Time: 03/09/2017 Small bowel obstruction associated with intestinal bands / adhesions (partial versus complete). (Electronically signed by Amita Shaw MD 03/09/2017 20:59)
--- NOTE | 2017-03-09 20:59 | ED MAR SUMMARY ---
..... Medication Administration Record [facility] [address] [place] [address] Patient: MELECIO LIVINGSTON Visit ID: [id number] 81y, F Weight: 47.6 kg Height/Length: 61 in BMI: 19.8 ALLERGIES: No Known Drug Allergy Given 07:30 03/09/2017 Mary Ann Delgadillo R.N. Medication Administered: ZOFRAN [IVP] (ONDANSETRON HCL), Dose: 4 mg IVP over 2 minute(s), Site: #1 left forearm. Medication Ordered: Zofran IV 4 mg (NOW). Start 07:35 03/09/2017 Mary Ann Delgadillo R.N. Medication Administered: IV NS (SALINE), Dose: IV Fluids, Bolus: 1000 mL wide open, Site: #1 left forearm. Medication Ordered: IV NS : initial bolus none -, then 1000 mL/hr for X1 (NOW). Given 07:38 03/09/2017 Mary Ann Delgadillo R.N. Medication Administered: MORPHINE [IVP], Dose: 2 mg IVP over 2 minute(s), Site: #1 left forearm. Medication Ordered: Morphine IV 2 mg (HIGH ALERT MEDICATION, NOW). Given 11:16 03/09/2017 Mary Ann Delgadillo R.N. Medication Administered: MORPHINE [IVP], Dose: 2 mg IVP over 2 minute(s), Site: #1 left forearm. Medication Ordered: Morphine IV 2 mg (HIGH ALERT MEDICATION, NOW). Start 11:16 03/09/2017 Mary Ann Delgadillo R.N. Medication Administered: IV NS (SALINE), Dose: IV Fluids over 10 hour(s), Rate: 100 mL/hr, Dispensed: 1000 mL bag, Site: #1 left forearm. Medication Ordered: IV NS : initial bolus none -, then 100 mL/hr for 24h (NOW).
--- NOTE | 2017-03-09 20:59 | ED MED RECONCILIATION SUMMARY ---
Patient: MELECIO LIVINGSTON Medication Reconciliation Report [facility] VisitID: [id number] [address] [place] [address] 81y, F Registration Date/Time: 03/09/2017 Weight: 47.6 kg Height/Length: 61 in. BMI: 19.8 ALLERGIES: No Known Drug Allergy The patient's Home Medications are listed below: THE FOLLOWING MEDICATIONS NEED TO BE RECONCILED: AmLODIPine Besylate Oral (10 mg) 1 tablet, daily AmLODIPine Besylate Oral Benzonatate Oral (100 mg) 2 capsules, daily Citalopram Hydrobromide Oral (20 mg) 1 tablet Citalopram Hydrobromide Oral Levothyroxine Sodium Oral (125 mcg) 1 tablet, daily Levothyroxine Sodium Oral Lovastatin Oral (40 mg) 1 tablet, daily Lovastatin Oral Multivitamins Oral Omeprazole Oral (20 mg) 1 tablet, daily Potassium Chloride Oral 10 meq, daily Zaleplon Oral (5 mg) 1/2 tab The source(s) of the original Home Medication information: Not obtained. The following Medications were given to the patient in the Emergency Department: IV NS IV Fluids bolus 1000 mL wide open, administered: 03/09/2017 7:35:00 AM Zofran [IVP] IVP 4 mg, administered: 03/09/2017 7:30:00 AM Morphine [IVP] IVP 2 mg, administered: 03/09/2017 7:38:00 AM Morphine [IVP] IVP 2 mg, administered: 03/09/2017 11:16:00 AM IV NS IV Fluids bolus 0, then 100 mL/hr, administered: 03/09/2017 11:16:00 AM The following Medications were prescribed to the patient: None.
--- NOTE | 2017-03-09 20:59 | ED MAR SUMMARY ---
..... Medication Administration Record [facility] [address] [place] [address] Patient: MELECIO LIVINGSTON Visit ID: [id number] 81y, F Weight: 47.6 kg Height/Length: 61 in BMI: 19.8 ALLERGIES: No Known Drug Allergy Given 07:30 03/09/2017 Mary Ann Delgadillo R.N. Medication Administered: ZOFRAN [IVP] (ONDANSETRON HCL), Dose: 4 mg IVP over 2 minute(s), Site: #1 left forearm. Medication Ordered: Zofran IV 4 mg (NOW). Start 07:35 03/09/2017 Mary Ann Delgadillo R.N. Medication Administered: IV NS (SALINE), Dose: IV Fluids, Bolus: 1000 mL wide open, Site: #1 left forearm. Medication Ordered: IV NS : initial bolus none -, then 1000 mL/hr for X1 (NOW). Given 07:38 03/09/2017 Mary Ann Delgadillo R.N. Medication Administered: MORPHINE [IVP], Dose: 2 mg IVP over 2 minute(s), Site: #1 left forearm. Medication Ordered: Morphine IV 2 mg (HIGH ALERT MEDICATION, NOW). Given 11:16 03/09/2017 Mary Ann Delgadillo R.N. Medication Administered: MORPHINE [IVP], Dose: 2 mg IVP over 2 minute(s), Site: #1 left forearm. Medication Ordered: Morphine IV 2 mg (HIGH ALERT MEDICATION, NOW). Start 11:16 03/09/2017 Mary Ann Delgadillo R.N. Medication Administered: IV NS (SALINE), Dose: IV Fluids over 10 hour(s), Rate: 100 mL/hr, Dispensed: 1000 mL bag, Site: #1 left forearm. Medication Ordered: IV NS : initial bolus none -, then 100 mL/hr for 24h (NOW).
[2017-03-09 22:35] VITALS: BP 112/60
[2017-03-10 02:20] VITALS: BP 109/50
--- NOTE | 2017-03-10 06:48 | DIAGNOSTIC IMAGING REPORT ---
PROCEDURE: XR ABDOMEN 1 VIEW UPRIGHT INDICATION: repeat TECHNIQUE: AP upright view. COMPARISON: KUB 02/2008 FINDINGS: Stable NG tube in place with the tip in the stomach. Bilateral pelvic surgical clips. Mild residual stool. There is no free air or mass. Bones are unremarkable. IMPRESSION: 1. Stable NG tube 2. Bilateral pelvic surgical clips 3. Mild residual stool
--- NOTE | 2017-03-10 06:50 | DIAGNOSTIC IMAGING REPORT ---
PROCEDURE: XR ABDOMEN 1 VIEW INDICATION: small bowel impression partial versus complete TECHNIQUE: AP supine view. COMPARISON: Upright KUB 03/10/2017 FINDINGS: NG tube in place with the tip in the stomach. Right lower quadrant ostomy. Bilateral pelvic surgical clips. Bowel gas pattern is normal with mild residual stool. No masses or unusual calcifications. Osseous structures are unremarkable. IMPRESSION: 1. Stable NG tube in place 2. Bilateral pelvic surgical clips and right lower quadrant ostomy 3. Mild residual stool
[2017-03-10 07:02] VITALS: BP 111/40
--- NOTE | 2017-03-10 07:37 | Progress Note ---
Subjective General 81-year-old female, hospital day one admission for partial versus complete small bowel obstruction. Patient is not passing any flatus or having any bowel movements. Patient is no longer having abdominal pain. No shortness of breath or chest pain. Physical Exam Vital Signs / I&Os NG output approximately 350 cc Vital Signs Date Time Temp Pulse Resp B/P Pulse O2 O2 Flow FiO2 Ox Delivery Rate 03/10 0702 98.6 65 18 111/40 95 Room Air 03/10 0220 98.8 70 14 109/50 95 Room Air 03/10 0030 Room Air 03/09 2235 98.1 72 15 112/60 93 Room Air 03/09 1837 98.4 72 16 129/51 94 Room Air 03/09 1401 98.8 69 16 130/45 96 Room Air I&O 03/09 0800 03/09 1600 03/10 0000 Intake Total Output Total 200 975 Balance -200 -975 General Appearance Alert, Oriented X3, Cooperative, No acute distress HEENT PERRLA, Moist mucous membranes Neck Supple, No JVD, No masses, No thyromegaly, No lymphadenopathy, 2+ carotid pulse wo bruit Cardiovascular Regular rate and rhythm Abdomen functioning ileal conduit. Abdomen nondistended. Nontympanitic. Positive bowel sounds. minimal tenderness to palpation Extremities No cyanosis, No clubbing, No edema Skin warm and dry Neurological No lateralizing signs Psych/Mental Status Mental status normal LAB Results Laboratory Tests 03/09 03/10 03/10 0745 0500 0525 Chemistry Plasma Sodium (136 - 145 mmol/L) Cancelled 144 Plasma Potassium (3.5 - 5.1 mmol/L) Cancelled 3.2 Plasma Chloride (98 - 107 mmol/L) Cancelled 105 CO2 (Enzymatic) (21 - 32 mmol/L) Cancelled 34 BUN (7 - 18 mg/dL) Cancelled 12 Creatinine (0.6 - 1.3 mg/dL) Cancelled 0.9 Est GFR ( Amer) (mL/min) Cancelled >60 Est GFR (Non-Af Amer) (mL/min) Cancelled >60 Glucose (70 - 110 mg/dL) Cancelled 99 Plasma Calcium (8.5 - 10.1 mg/dL) Cancelled 9.2 Plasma Magnesium (1.8 - 2.4 mg/dL) 1.8 Total Bilirubin (0.0 - 1.0 mg/dL) 1.4 AST (15 - 37 U/L) 20 ALT (12 - 78 U/L) 18 Alkaline Phosphatase (46 - 116 U/L) 55 Total Protein (6.4 - 8.2 g/dL) 6.2 Albumin (3.3 - 5.0 g/dL) 3.1 Hematology WBC (4.5 - 11.5 K/uL) 10.8 RBC (4.00 - 5.20 M/uL) 4.18 Hgb (12.0 - 16.0 gm/dL) 12.7 Hct (36.0 - 46.0 %) 38.1 MCV (80 - 100 fL) 91 MCH (26 - 34 pg) 30 RDW (11.6 - 14.8 %) 13.8 Neut % (Auto) (50 - 75 %) 72.1 Lymph % (Auto) (25 - 40 %) 13.9 [place] % (Auto) (3 - 14 %) 9.8 Eos % (Auto) (0 - 4 %) 4.0 Baso % (Auto) (0 - 2 %) 0.2 Plt Count, EDTA (150 - 400 K/uL) 305 PUBS MCHC (31 - 37 g/dL) 33 Urines Urine Color YELLOW Urine Appearance CLEAR Urine pH (5.0 - 8.0) 7.0 Ur Specific [place] (1.010 - 1.030) 1.010 Urine Protein (NEGATIVE) NEGATIVE Urine Ketones (NEGATIVE) NEGATIVE Urine Blood (NEGATIVE) NEGATIVE Urine Nitrite (NEGATIVE) NEGATIVE Urine Bilirubin (NEGATIVE) NEGATIVE Urine Urobilinogen (0.2 - 1.0 EU/dL) 0.2 Ur Leukocyte Esterase (NEGATIVE) NEGATIVE Urine RBC (0 - 1 rbc/hpf) 0-1 Urine WBC (0 - 1 wbc/hpf) 0-1 Ur Epithelial Cells (0 - 5 EPI/hpf) 0-1 Urine Bacteria (NONE SEEN) NONE SEEN Urine Glucose (NEGATIVE) NEGATIVE Urine Comment CULT NOT INDICATED Assessment and Plan Problem List 1. PARTIAL VERSUS COMPLETE SMALL BOWEL OBSTRUCTION Plan Abdominal x-rays this morning was nonspecific bowel gas pattern. We will obtain Gastrografin small bowel follow-through via NG tube today. Discussed with patient she understands and all questions answered to her satisfaction
--- NOTE | 2017-03-10 08:24 | Progress Note ---
Subjective General Note Date: 03/10/17 Admission Date: 03/09/17 Hospital Day:2 PCP: Nickie Status: Status- ACU In patient. Advanced Directive: available, full code with limitations. Room: 203 Admisison history. 81-year-old female with history of hyperlipidemia, hypertension, hypothyroid, bladder cancer status post cystectomy with ilial conduit who is presenting with severe colicky epigastric abdominal pain which began approximately 48 hours prior to her arrival arrival at [facility] ED. patient was seen and examined by both the hospitalist and General surgery. CT scan revealed partial obstruction to complete obstruction of the small bowel. Patient with small bowel obstruction. NG tube and bowel rest and admitted to acute care. Patient with significant reduction in the pain hospital day 2 . Expect to advance diet with improved bowel She reported a worsening over the previous 24 hours. For other history present illness, past medical history, family history, social history, review of systems, and admission physical examination please see the patient's history and physical examination and ER visit note in the patient's medical record. Constitutional Denies: Chills, Weakness. Eyes Denies: Vision Change. Respiratory Denies: SOB w/exertion. Cardiovascular Denies: Palpitations. Gastrointestinal Abdominal Pain. Physical Exam Vital Signs / I&Os Vital Signs Date Time Temp Pulse Resp B/P Pulse O2 O2 Flow FiO2 Ox Delivery Rate 03/10 0702 98.6 65 18 111/40 95 Room Air 03/10 0220 98.8 70 14 109/50 95 Room Air 03/10 0030 Room Air 03/09 2235 98.1 72 15 112/60 93 Room Air 03/09 1837 98.4 72 16 129/51 94 Room Air 03/09 1401 98.8 69 16 130/45 96 Room Air I&O 03/09 0800 03/09 1600 03/10 0000 Intake Total Output Total 200 975 Balance -200 -975 General Appearance Oriented X3, Cooperative HEENT NGT in place Lungs Clear to auscultation Cardiovascular Regular rate and rhythm Abdomen Soft, health sounds present in all 4 quadrants. Ileal conduit appreciated Neurological No lateralizing signs Psych/Mental Status Mood normal LAB Results Laboratory Tests 03/10 03/10 0500 0525 Chemistry Plasma Sodium (136 - 145 mmol/L) Cancelled 144 Plasma Potassium (3.5 - 5.1 mmol/L) Cancelled 3.2 Plasma Chloride (98 - 107 mmol/L) Cancelled 105 CO2 (Enzymatic) (21 - 32 mmol/L) Cancelled 34 BUN (7 - 18 mg/dL) Cancelled 12 Creatinine (0.6 - 1.3 mg/dL) Cancelled 0.9 Est GFR ( Amer) (mL/min) Cancelled >60 Est GFR (Non-Af Amer) (mL/min) Cancelled >60 Glucose (70 - 110 mg/dL) Cancelled 99 Plasma Calcium (8.5 - 10.1 mg/dL) Cancelled 9.2 Plasma Magnesium (1.8 - 2.4 mg/dL) 1.8 Total Bilirubin (0.0 - 1.0 mg/dL) 1.4 AST (15 - 37 U/L) 20 ALT (12 - 78 U/L) 18 Alkaline Phosphatase (46 - 116 U/L) 55 Total Protein (6.4 - 8.2 g/dL) 6.2 Albumin (3.3 - 5.0 g/dL) 3.1 Hematology WBC (4.5 - 11.5 K/uL) 10.8 RBC (4.00 - 5.20 M/uL) 4.18 Hgb (12.0 - 16.0 gm/dL) 12.7 Hct (36.0 - 46.0 %) 38.1 MCV (80 - 100 fL) 91 MCH (26 - 34 pg) 30 RDW (11.6 - 14.8 %) 13.8 Neut % (Auto) (50 - 75 %) 72.1 Lymph % (Auto) (25 - 40 %) 13.9 [place] % (Auto) (3 - 14 %) 9.8 Eos % (Auto) (0 - 4 %) 4.0 Baso % (Auto) (0 - 2 %) 0.2 Plt Count, EDTA (150 - 400 K/uL) 305 PUBS MCHC (31 - 37 g/dL) 33 Assessment and Plan Problem List 1. Abdominal pain Plan Abdominal pain secondary to SPF; with near resolution of the pain. Remains nothing by mouth but Needing to advanced diet once patient has flatulence in bowel movement. Continue with the NGT Suction Nothing by mouth at this time. 2. PARTIAL VERSUS COMPLETE SMALL BOWEL OBSTRUCTION Plan Patient on bowel rest and NGT in place Plain film upright today Followed by general surgery. 3. Hypothyroid Plan Continue with the home regimen. 4. Hypertension Plan blood pressure well managed on current therapy 5. Hypokalemia Plan Replace potassium Current status: Fair poor Anticipated discharge date: discharge date Anticipated discharge placement: To home Patient care time: Time spent in chart review, patient interview, physical exam, CPOE, and care documentation: 35 minutes Visit to patient today: 1 Complexity of care: Moderate E&M Codes Rounding: Inpt-High/[id number]
--- NOTE | 2017-03-10 09:15 | DIAGNOSTIC IMAGING REPORT ---
PROCEDURE: XR SBFT WITH GASTROGRAFIN INDICATION: partial vs complete small bowel obstruction TECHNIQUE: 240 ml of gastrographin via NG tube and overhead films obtained. COMPARISON: KUB 03/10/2017 and 03/09/2017. Findings: Initial film demonstrates contrast in the stomach and proximal small bowel. Bilateral pelvic surgical clips. The 30 minutes film demonstrates normal small bowel caliber and mucosal pattern. There is contrast into the transverse colon. IMPRESSION: 1. No evidence of bowel obstruction 2. Results discussed with Dr. Concepcion
[2017-03-10 10:00] VITALS: BP 129/50
[2017-03-10 14:48] VITALS: BP 119/50
[2017-03-10 18:09] VITALS: BP 123/42
[2017-03-10 22:01] VITALS: BP 124/43
[2017-03-11 02:23] VITALS: BP 121/44
[2017-03-11 07:00] VITALS: BP 119/40
--- NOTE | 2017-03-11 07:42 | Progress Note ---
Subjective General Note Date: 03/10/17 Admission Date: 03/09/17 Hospital Day:2 PCP: Nickie Status: Status- ACU In patient. Advanced Directive: available, full code with limitations. Room: 203 Admisison history. 81-year-old female with history of hyperlipidemia, hypertension, hypothyroid, bladder cancer status post cystectomy with ilial conduit who is presenting with severe colicky epigastric abdominal pain which began approximately 48 hours prior to her arrival arrival at [facility] ED. patient was seen and examined by both the hospitalist and General surgery. CT scan revealed partial obstruction to complete obstruction of the small bowel. Patient with small bowel obstruction. NG tube and bowel rest and admitted to acute care. Patient with significant reduction in the pain on hospital day 2 . Repeat KUB upright showing reduction and no further evidence of bowel obstruction. General surgery consulted and recommended patient be on clear liquids NG tube was removed. Patient had significant improvement. Patient had repeat bowel movements through the day. Patient on day 3 feeling much improved able to get up and walk around. She found to be hypokalemic, calcium replace. Patient adequate response to care and discharged home with appointments for primary care. For other history present illness, past medical history, family history, social history, review of systems, and admission physical examination please see the patient's history and physical examination and ER visit note in the patient's medical record. Subjective Patient seen at bedside today. No complaints. Patient reports of no further bowel pain. Patient's had multiple bowel movements. Patient is tolerating by mouth liquids. Constitutional Denies: Chills, Sweats. Respiratory Denies: SOB w/exertion. Cardiovascular Denies: Palpitations. Physical Exam Vital Signs / I&Os Vital Signs Date Time Temp Pulse Resp B/P Pulse O2 O2 Flow FiO2 Ox Delivery Rate 03/11 0700 98.4 66 18 119/40 95 Room Air 03/11 0223 97.9 69 15 121/44 99 Room Air 03/10 2201 98.2 70 18 124/43 94 Room Air 03/10 2150 Room Air 03/10 1809 98.2 72 18 123/42 96 Room Air 03/10 1630 Room Air 03/10 1448 98.2 73 18 119/50 96 Room Air 03/10 1000 98.4 77 18 129/50 94 Room Air 03/10 0800 Room Air I&O 03/10 0800 03/10 1600 03/11 0000 Intake Total 1774 636 Output Total 965 150 400 Balance 809 -150 236 General Appearance Oriented X3, No acute distress HEENT EOMI Lungs Clear to auscultation Cardiovascular Regular rate and rhythm Abdomen Soft, No tenderness, s/p cystostomy with ileal conduit in place Skin No Rashes LAB Results Laboratory Tests 03/11 0550 Chemistry Plasma Sodium (136 - 145 mmol/L) 148 Plasma Potassium (3.5 - 5.1 mmol/L) 2.6 Plasma Chloride (98 - 107 mmol/L) 107 CO2 (Enzymatic) (21 - 32 mmol/L) 31 BUN (7 - 18 mg/dL) 12 Creatinine (0.6 - 1.3 mg/dL) 0.6 Est GFR ( Amer) (mL/min) >60 Est GFR (Non-Af Amer) (mL/min) >60 Glucose (70 - 110 mg/dL) 81 Plasma Calcium (8.5 - 10.1 mg/dL) 9.0 Plasma Magnesium (1.8 - 2.4 mg/dL) 1.3 Hematology WBC (4.5 - 11.5 K/uL) 10.8 RBC (4.00 - 5.20 M/uL) 3.86 Hgb (12.0 - 16.0 gm/dL) 11.7 Hct (36.0 - 46.0 %) 35.0 MCV (80 - 100 fL) 91 MCH (26 - 34 pg) 30 RDW (11.6 - 14.8 %) 13.6 Neut % (Auto) (50 - 75 %) 77.8 Lymph % (Auto) (25 - 40 %) 10.3 [place] % (Auto) (3 - 14 %) 8.4 Eos % (Auto) (0 - 4 %) 2.8 Baso % (Auto) (0 - 2 %) 0.7 Plt Count, EDTA (150 - 400 K/uL) 276 PUBS MCHC (31 - 37 g/dL) 33 Assessment and Plan Problem List 1. Abdominal pain Plan Abdominal pain resolved with a reduction of her partial small bowel obstruction. The small bowel obstruction is resolved. Patient having adequate by mouth and output. Patient is adequately stable for discharge. 2. PARTIAL VERSUS COMPLETE SMALL BOWEL OBSTRUCTION Plan Resolution of the partial versus complete small bowel obstruction. Patient with normal functional bowel. Patient with good by mouth. Discussed the possibility of return in symptoms which could be a reflection of obstruction. Patient is aware of these regards and concerns and these items will be discussed with primary care provider. She should return if there is further worsening 3. Hypothyroid Plan No changes 4. Hypertension Plan Will control blood pressure during hospitalization. Stable without changes 5. Hypokalemia Plan Will continue with the replacement of potassium. Patient be given oral potassium along with an IV source. Recheck potassium levels prior to discharge; replace if necessary. Patient should follow up with primary care and have the lab repeated. Current status: Good Anticipated discharge date: Today Anticipated discharge placement: Home Patient care time: Time spent in chart review, patient interview, physical exam, CPOE, and care documentation: Greater than 30 minutes Visit to patient today: Complexity of care: mild E&M Codes Discharge: Inpt >30 min spent/[id number]
--- NOTE | 2017-03-11 07:48 | Discharge Summary ---
Discharge Summary Report Admit Date 03/09/17 Discharge Date 03/11/17 Admission Diagnosis 1. Abdominal pain 2. Partial versus complete small bowel obstruction 3. Hypothyroid 4. Hypertension Discharge Diagnosis 1. Abdominal pain 2. Partial versus complete small bowel obstruction 3. Hypothyroid 4. Hypertension 5. Hypokalemia. Brief History See the HPI dated 03/07/2017 Hospital Course 81-year-old female with history of hyperlipidemia, hypertension, hypothyroid, bladder cancer status post cystectomy with ilial conduit who is presenting with severe colicky epigastric abdominal pain which began approximately 48 hours prior to her arrival arrival at [facility] ED. patient was seen and examined by both the hospitalist and General surgery. CT scan revealed partial obstruction to complete obstruction of the small bowel. Patient with small bowel obstruction. NG tube and bowel rest and admitted to acute care. Patient with significant reduction in the pain on hospital day 2 . The upright small bowel follow- through using Gastrografin showed a reduction and no further evidence of bowel obstruction. General surgery consulted and recommended patient be on clear liquids NG tube was removed. Patient had significant improvement. Patient had repeat bowel movements through the day. Patient on day 3 feeling much improved able to get up and walk around. She found to be hypokalemic, calcium replace. Patient adequate response to care and discharged home with appointments for primary care. General Appearance Oriented X3, No acute distress HEENT EOMI Lungs Clear to auscultation Cardiovascular Normal S1, No murmurs Abdomen Soft, ilial conduit. Neurological Cranial nerves 3-12 NL Psych/Mental Status Mood NL Lab/Imaging Laboratory Tests 03/11 0550 Chemistry Plasma Sodium (136 - 145 mmol/L) 148 Plasma Potassium (3.5 - 5.1 mmol/L) 2.6 Plasma Chloride (98 - 107 mmol/L) 107 CO2 (Enzymatic) (21 - 32 mmol/L) 31 BUN (7 - 18 mg/dL) 12 Creatinine (0.6 - 1.3 mg/dL) 0.6 Est GFR ( Amer) (mL/min) >60 Est GFR (Non-Af Amer) (mL/min) >60 Glucose (70 - 110 mg/dL) 81 Plasma Calcium (8.5 - 10.1 mg/dL) 9.0 Plasma Magnesium (1.8 - 2.4 mg/dL) 1.3 Hematology WBC (4.5 - 11.5 K/uL) 10.8 RBC (4.00 - 5.20 M/uL) 3.86 Hgb (12.0 - 16.0 gm/dL) 11.7 Hct (36.0 - 46.0 %) 35.0 MCV (80 - 100 fL) 91 MCH (26 - 34 pg) 30 RDW (11.6 - 14.8 %) 13.6 Neut % (Auto) (50 - 75 %) 77.8 Lymph % (Auto) (25 - 40 %) 10.3 [place] % (Auto) (3 - 14 %) 8.4 Eos % (Auto) (0 - 4 %) 2.8 Baso % (Auto) (0 - 2 %) 0.7 Plt Count, EDTA (150 - 400 K/uL) 276 PUBS MCHC (31 - 37 g/dL) 33 X-ray Gastrografin 1. No evidence of bowel obstruction Discharge Instructions/Meds Discharged from care for the treatment of a partial to small bowel obstruction. Radiographic studies show no further obstruction of the bowel. An appointment is necessary with the primary care provider to discuss options for care. The primary care provider should be informed of your hospitalization and the appropriate treatment and therapy for small bowel obstruction. Follow-up with oncologist services as planned. During the hospitalization the potassium was low. The potassium level should be checked when she see her primary care provider. Potassium was last replaced on the date of discharge. Avoid elements of dehydration. Push the fluids and replace electrolytes. Start off with a soft diet and advance as tolerated. Resume home medication that had been previously prescribed. This includes the following: Benzonatate Oral (Capsule 100 mg) 2 capsules, daily. Zaleplon Oral (Capsule 5 mg) 1/2 tab. Omeprazole Oral (Tablet Delayed Release 20 mg) 1 tablet, daily. AmLODIPine Besylate Oral (Tablet 10 mg) 1 tablet, daily. Multivitamins Oral. Levothyroxine Sodium Oral (Tablet 125 mcg) 1 tablet, daily. Citalopram Hydrobromide Oral (Tablet 20 mg) 1 tablet. Lovastatin Oral (Tablet 40 mg) 1 tablet, daily. Potassium Chloride Oral 10 meq, daily. For other recommendations regarding discharge diet, activity, followup, and discharge medications please see the patient's discharge instructions. Discharge condition: Good Greater than 30 min. was spent in the patient's discharge preparation including discharge interview and physical examination, progress note, discharge instructions, and discharge summary The patient was interviewed and examined on the day of discharge. Patient is discharged with instructions to follow-up with primary care provider.
--- NOTE | 2017-03-11 08:08 | Provider's Discharge Care Plan ---
Problem, Goal, Plan Problem List 1. Abdominal pain Goals: Prevent disease progress, Therapeutic intervention Instructions: Follow up as directed 2. PARTIAL VERSUS COMPLETE SMALL BOWEL OBSTRUCTION Goals: Learn about illness, Prevent disease progress Instructions: Follow up as directed 3. Hypothyroid Goals: Screening Instructions: Follow up as directed 4. Hypertension Goals: Screening Instructions: Follow up as directed 5. Hypokalemia Goals: Screening, Therapeutic intervention Instructions: Follow up as directed, Take meds as directed
[2017-03-11 10:44] VITALS: BP 116/41
[2017-03-11 14:29] VITALS: BP 114/48
== END 2017-03-11 18:45 | disposition home or self-care (01) | DRG 390 ==
LOC: ED SRH 06:45 → TRANS SRH 10:54 → ACUTE2 SRH 14:10
PROVIDERS: ADMIT Emergency Medicine
PROC: 0D9670Z Drainage of Stomach with Drainage Device, Via Natural or Artificial Opening (ICD-10-PCS; principal; 2017-03-09)
DX: K56.60 Unspecified intestinal obstruction (principal); E87.6 Hypokalemia; I10 Essential (primary) hypertension; E78.5 Hyperlipidemia, unspecified; E03.9 Hypothyroidism, unspecified; K21.9 Gastro-esophageal reflux disease without esophagitis; Z93.6 Other artificial openings of urinary tract status; Z85.51 Personal history of malignant neoplasm of bladder; Z90.6 Acquired absence of other parts of urinary tract; Z85.3 Personal history of malignant neoplasm of breast; Z80.0 Family history of malignant neoplasm of digestive organs
CPT/HCPCS: 87094; 90004; 90047; 90074; 90100; 92235; 92530; 92720; 92750; 95059